=== PATIENT | female | born 1965 | race Caucasian/White ===

== ENCOUNTER 2019-08-06 12:03 | Inpatient (IN) | payer OTHER ==
[~2019-08-06] VITALS: Ht 165.1 cm; Wt 123.2 kg
--- NOTE | ~2019-08-06 | EKG ---
[place], [place] ELECTROCARDIOGRAM REPORT NAME: BRIGHT AMADO UNIT #: [id number] ROOM: [facility] DOCTOR: ANDIE DRAFT REPORT BIRTHDATE: [birth year] [facility] Test Date: 2019-08-06 Test Time: 20:03:00 Pat Name: BRIGHT AMADO Department: Room: [facility] 1 Gender: F Referral Nurse: Sejal Jean : 1965 Requested By: GERARDO PELAYO Order Number: [id number] Reading MD: Ashtyn Campuzano MD Measurements Intervals [place] Rate: 105 P: 55 PA: 172 QRS: 10 QRSD: 95 T: 40 QT: 342 QTc: 453 Interpretive Statements Sinus tachycardia Low voltage, precordial leads Borderline ST elevation, anterolateral leads Baseline wander in lead(s) I,II,III,aVR,aVL,V1,V2,V3,V4,V5,V6 Compared to ECG 08/06/2019 14:43:14 ST (T wave) deviation now present Sinus rhythm no longer present Electronically Signed On 08-08-2019 17:22:06 PDT by Ashtyn Campuzano MD CM:EKGRPT:ELECTROCARDIOGRAM REPORT 02 21 GERARDO AGUDELO DRAFT REPORT GERARDO PELAYO DO
--- NOTE | ~2019-08-06 | EKG ---
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
--- NOTE | ~2019-08-06 | EKG ---
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
[~2019-08-06 12:03] MED LIST: ALBUTEROL0.09 MG/A2 IH; ANAPROX DS550 MG PO; BP PILL; CORDROL20 MG PO; COUMADIN10 M1 PO; DELTASONE20 M1 PO; DEPRESSION PILL; LISINOPRIL10 M1 PO; MOTRIN800 MG PO; NKHM; NORCO 5-325 TA1 EACH PO; RESTORIL30 MG PO; TOBREX OPHTH S2.5 ML OPH; VIBRAMYCIN100 MG PO; VICO75300 PO; XANAX2 M1 PO
[2019-08-06 12:13] VITALS: BP 161/102
[2019-08-06 12:58] LABS: BASO # 0.1 10*3/uL (0.0-0.1); BASO % 0.5 % (0.0-1.0); EOS # 0.2 10*3/uL (0.0-0.4); EOS % 1.7 % (1.0-4.0); HEMATOCRIT 42.8 % (37.0-47.0); HEMOGLOBIN 13.4 g/dl (12.0-16.0); LYMPH # 1.5 10*3/uL (1.3-4.4); LYMPH % 12.8 % (27.0-41.0); MEAN CELL VOLUME 96.4 fl (81.0-99.0); MEAN CORPUSCULAR HGB 30.2 pg (27.0-31.0); MEAN CORPUSCULAR HGB CONC 31.3 g/dl (33.0-37.0); MONO # 0.9 10*3/uL (0.1-1.0); MONO % 7.6 % (3.0-9.0); NEUT # 8.8 10*3/uL (2.3-7.9); PLATELET COUNT AUTOMATED 300 10*3/uL (130-400); RED BLOOD COUNT 4.44 10*6/uL (4.10-5.10); RED CELL DISTRI WIDTH 13.4 % (0-14.5); WHITE BLOOD COUNT 11.4 10*3/uL (4.8-10.8)
[2019-08-06 13:10] LABS: ALBUMIN 3.1 gm/dl (3.1-4.5); ALKALINE PHOSPHATASE 92 U/L (45-117); BUN 14 mg/dl (7-24); CHLORIDE 106 mmol/L (98-107); CREATININE 0.73 mg/dL (0.55-1.02); POTASSIUM 3.5 mmol/L (3.5-5.1); SGOT/AST 14 IU/L (3-35); SGPT/ALT 31 U/L (12-78); SODIUM 141 mmol/L (136-145); TOTAL PROTEIN 7.5 gm/dL (6.4-8.2)
[2019-08-06 14:23] VITALS: BP 152/80
--- NOTE | 2019-08-06 14:45 | NUR ---
A 53, admitted to , under the services of SHENG Spears DO with a diagnosis of CELLULITIS FAILURE OF OUTPATIENT TREATMENT. Chief complaint is CELLULITIS FAILURE OF OUTPATIENT TREATMENT. Patient arrived via bed from ER. Monitor applied. Initial assessment completed. Vital signs taken and recorded. SHENG SPEARS DO notified of admission to the unit. Orders received. See assessment for past medical history, medications and allergies. Patient and/or family oriented to unit. [facility]. Clothing/patient valuable form completed. ROBERTH العلي
[2019-08-06] MEDS ORDERED: LISINOPRIL20 MG PO (14:50)
[2019-08-06] MEDS ORDERED: KEFLEX 500 MG E2 CAP PO (14:51)
--- NOTE | 2019-08-06 15:30 | NUR ---
NOTIFIED OF CONSULT AND AT PATIENTS BEDSIDE
[2019-08-06 16:00] VITALS: BP 150/75
--- NOTE | 2019-08-06 18:04 | NUR ---
FLU VACCINATION ADMINISTERED LEFT DELTOID
--- NOTE | 2019-08-06 19:50 | NUR ---
24 HOUR CHART CHECK COMPLETED
[2019-08-06 20:00] VITALS: BP 168/75
[2019-08-07] VITALS (9 sets, daily range): BP systolic 115–156; BP diastolic 50–86
--- NOTE | 2019-08-07 00:30 | NUR ---
PATIENT RESTING IN BED IN A POSITION OF COMFORT AT THIS TIME, RESPIRATIONS EASY AND NONLABORED, EYES CLOSED. CALL LIGHT WITHIN REACH WILL CONTINUE TO MONITOR.
[2019-08-07 06:18] LABS: BASO % 0.1 % (0.0-1.0); HEMATOCRIT 37.5 % (37.0-47.0); HEMOGLOBIN 11.8 g/dl (12.0-16.0); LYMPH # 0.5 10*3/uL (1.3-4.4); LYMPH % 4.6 % (27.0-41.0); MEAN CELL VOLUME 96.9 fl (81.0-99.0); MEAN CORPUSCULAR HGB 30.5 pg (27.0-31.0); MEAN CORPUSCULAR HGB CONC 31.5 g/dl (33.0-37.0); MEAN PLATELET VOLUME 9.8 fl (9.6-12.3); MONO # 0.7 10*3/uL (0.1-1.0); MONO % 6.1 % (3.0-9.0); NEUT # 9.7 10*3/uL (2.3-7.9); NEUT % 88.6 % (47.0-73.0); PLATELET COUNT AUTOMATED 271 10*3/uL (130-400); RED BLOOD COUNT 3.87 10*6/uL (4.10-5.10); RED CELL DISTRI WIDTH 13.5 % (0-14.5); WHITE BLOOD COUNT 10.9 10*3/uL (4.8-10.8)
[2019-08-07 06:45] LABS: ALBUMIN 2.5 gm/dl (3.1-4.5); ALKALINE PHOSPHATASE 82 U/L (45-117); BUN 9 mg/dl (7-24); CHLORIDE 110 mmol/L (98-107); CHOLESTEROL 148 mg/dL (<200); CREATININE 0.55 mg/dL (0.55-1.02); FREE T4 0.99 ng/dl (0.76-1.46); HDL CHOLESTEROL 58 mg/dl (40-60); LDL CHOLESTEROL 83 mg/dL (9-159); PHOSPHOROUS 2.5 mg/dL (2.5-4.9); POTASSIUM 3.8 mmol/L (3.5-5.1); SGOT/AST 14 IU/L (3-35); SGPT/ALT 27 U/L (12-78); SODIUM 142 mmol/L (136-145); TOTAL PROTEIN 6.5 gm/dL (6.4-8.2); TRIGLYCERIDES 37 mg/dl (<150); VLDL CHOLESTEROL 7 mg/dL (6-40)
[2019-08-07 06:50] LABS: THYROID STIM HORMONE (HS) 0.428 uIU/ml (0.358-4.75)
[2019-08-07 06:51] LABS: ACT PARTIAL THROMBO TIME 26.1 SECONDS (20.0-32.1); INTERNATIONAL NORM RATIO 0.9 (2.0-3.5)
--- NOTE | 2019-08-07 06:59 | NUR ---
BRIGHT AMADO [id number] Please refer to the physician's history and physical for past medical history, comorbid conditions, and allergies. Diagnosis: CELLULITIS FAILURE OF OUTPATIENT TREATMENT Matthew Score: 21,LOW OR NO RISK WOUND DESCRIPTIONS: Wound Number: 1 Location of the wound: left lower quadrant below breast Type of wound: abscess Thickness: Full Size: 11.0cm x 15.0cm x <0.1cm Tunneling: none Undermining: none Sinus Tract: none Presence of Exudate: none Amount: None Color: Red, yellow, brown Odor: None Periwound Skin Appearance: Erythema, firmness Wound edges: approximated Pain (associated with wound): tender to touch but patient states it is much better than yesterday How does patient state this happened? patient stated this started one week ago and she is unsure how it happened Surface the patient is resting on: Isoflex SKIN PREVENTION RECOMMENDATION: 1. Pressure redistribution support surface as appropriate 2. Elevate heels 3. Remove boots/TEDS every shift and reapply 4. Head of bed 30 degrees as tolerated 5. Assess nutrition and hydration 6. Manage moisture 7. Avoid the use of containment devices while in bed 8. Use absorptive products on surfaces limit layers of linens on bed 9. Turn and reposition every 1-2 hours in bed and every 1 hour in chair as tolerated 10. Weight shifts every 15 minutes while up in chair 11. Offloading with pillows or device to keep heels elevated off bed 12. Monitor skin at least every shift 13. Inspect under medical devices twice a day WOUND TREATMENT RECOMMENDATIONS: Dr. Jensen is already on consult for this patient and possible I&D after ultrasound today await wound care orders post op .
--- NOTE | 2019-08-07 07:03 | NUR ---
Patient stated that she will follow up in the wound care center if any procedures are done while she is here if not she will take care of the area at home when she is discharged.
--- NOTE | 2019-08-07 08:00 | NUR ---
Patient resting quietly with no c/o discomfort. Respirations easy and regular. Vital signs stable. No overt distress. HARISH ZUÑIGA
[2019-08-07 09:06] LABS: VITAMIN D, 25-HYDROXY 16.3 ng/mL (30-100)
--- NOTE | 2019-08-07 10:30 | NUR ---
Heat Treat Supervisor in to talk to patient. Patient states lives at home alone with her son living next door. There are 2 steps in the home. Physician: no family physician Pharmacy: [facility] Home health services: none Patient's level of ADLs: INDEPENDENT Patient has working utilities: yes DME: none Follow-up physician's appointment after d/c: will be made by the hospitalist nurse director upon discharge Does patient want to access PORTAL?: no Discharge plan discussed with patient. She lives at home alone with her son living next door. She is independent in her ADLs and ambulation. Discussed home health care services and she denies any home needs at this time. When medically stable she will be discharged to home. She will drive herself home as she drove herself here and her car is in the parking lot. RAH MENDEZ
--- NOTE | 2019-08-07 15:16 | NUR ---
MEDICATED WITH IV MORPHINE ORDERED PER PT REQUEST FOR C/O PAIN TO SURGICAL SITE.
--- NOTE | 2019-08-07 15:29 | NUR ---
Nutritional Support Services Note: Dx of abscess/cellulitis left breast. Appetite is good for meals, she is eating 100%. Regular diet as ordered. Ht.5'5 Wt.272#. Discussed with pt need for healthy eating. Adequate protein to promote healing. No other nutrition intervention at this time. Will follow as needed. Danielle Redd Rdn Ld
--- NOTE | 2019-08-07 16:40 | NUR ---
MEDICATED WITH PO NORCO ORDERED PER PT REQUEST FOR C/O PAIN TO SURGICAL SITE 07/19. DRESSING D/I. PREVIOUS MEDICATION NOT EFFECTIVE.
--- NOTE | 2019-08-07 19:07 | NUR ---
MEDICATION EFFECTIVE FOR PAIN.
--- NOTE | 2019-08-07 20:47 | NUR ---
MORPHINE GIVEN PER PRN ORDER FOR C/O PAIN TO SURGICAL INCISION UNDER LT BREAST. RENATA INTACT. CALL LIGHT IN REACH. WILL MONITOR.
--- NOTE | 2019-08-07 22:17 | NUR ---
MORPHINE EFFECTIVE FOR PAIN PER PT.
[2019-08-08] VITALS: BP 102/57
--- NOTE | 2019-08-08 04:12 | NUR ---
IV MORPHINE GIVEN PER PRN ORDERS FOR C/O 05/19 PAIN TO SURGICAL INCISION UNDER LT BREAST. CALL LIGHT IN REACH.
[2019-08-08 06:53] LABS: BUN 15 mg/dl (7-24); CHLORIDE 112 mmol/L (98-107); CREATININE 0.59 mg/dL (0.55-1.02); POTASSIUM 4.1 mmol/L (3.5-5.1); SODIUM 144 mmol/L (136-145)
[2019-08-08 07:57] LABS: BASO # 0.1 10*3/uL (0.0-0.1); BASO % 0.7 % (0.0-1.0); EOS # 0.2 10*3/uL (0.0-0.4); EOS % 2.6 % (1.0-4.0); HEMATOCRIT 37.3 % (37.0-47.0); HEMOGLOBIN 11.4 g/dl (12.0-16.0); LYMPH # 1.4 10*3/uL (1.3-4.4); LYMPH % 15.6 % (27.0-41.0); MEAN CELL VOLUME 98.9 fl (81.0-99.0); MEAN CORPUSCULAR HGB 30.2 pg (27.0-31.0); MEAN CORPUSCULAR HGB CONC 30.6 g/dl (33.0-37.0); MONO # 0.8 10*3/uL (0.1-1.0); MONO % 9.2 % (3.0-9.0); NEUT # 6.3 10*3/uL (2.3-7.9); NEUT % 71.4 % (47.0-73.0); PLATELET COUNT AUTOMATED 278 10*3/uL (130-400); RED BLOOD COUNT 3.77 10*6/uL (4.10-5.10); WHITE BLOOD COUNT 8.8 10*3/uL (4.8-10.8)
[2019-08-08 08:00] VITALS: BP 138/82
--- NOTE | 2019-08-08 08:43 | NUR ---
MEDICATED WITH PO NORCO ORDERED PER PT REQUEST FOR C/O PAIN RATED 7/10 UNDER L BREAST TO SURGICAL SITE. DRESSING D/I. ICE IN PLACE.
--- NOTE | 2019-08-08 09:40 | NUR ---
Follow up with Dr. Jensen in wound care clinic on 08/13/19 at 3:45pm, call [phone] with any concerns
--- NOTE | 2019-08-08 10:00 | NUR ---
MEDICATION SOMEWHAT EFFECTIVE FOR PAIN.
[2019-08-08 12:00] VITALS: BP 125/75
--- NOTE | 2019-08-08 15:47 | NUR ---
MEDICATED WITH PO NORCO AND IV MORPHINE ORDERED PER PT REQUEST FOR C/O PAIN TO L FLANK POST-OP SITE RATED 10/10 AFTER DRESSING CHANGE.
[2019-08-08 16:00] VITALS: BP 141/87
--- NOTE | 2019-08-08 18:53 | NUR ---
MEDICATION EFFECTIVE FOR PAIN.
[2019-08-08 20:00] VITALS: BP 123/67
--- NOTE | 2019-08-08 20:30 | NUR ---
RESTING IN BED. VOICES NO C/O AT THIS TIME. CALL LIGHT WITHIN REACH.
[2019-08-09] VITALS: BP 108/57
--- NOTE | 2019-08-09 03:30 | NUR ---
AROUSES EASILY WHEN THIS RN WENT INTO ROOM TO HANG IV ANTIBIOTIC. PT. REFUSING ANY PAIN MEDICATION AT THIS TIME. IV ANTIBX INFUSING; CALL LIGHT WITHIN REACH.
--- NOTE | 2019-08-09 06:00 | NUR ---
RESTING IN BED WITH EYES CLOSED. CALL LIGHT WITHIN REACH.
[2019-08-09 06:23] LABS: BASO # 0.1 10*3/uL (0.0-0.1); BASO % 0.6 % (0.0-1.0); EOS # 0.3 10*3/uL (0.0-0.4); EOS % 3.8 % (1.0-4.0); HEMATOCRIT 36.2 % (37.0-47.0); HEMOGLOBIN 11.1 g/dl (12.0-16.0); LYMPH # 1.3 10*3/uL (1.3-4.4); LYMPH % 15.7 % (27.0-41.0); MEAN CELL VOLUME 97.3 fl (81.0-99.0); MEAN CORPUSCULAR HGB 29.8 pg (27.0-31.0); MEAN CORPUSCULAR HGB CONC 30.7 g/dl (33.0-37.0); MEAN PLATELET VOLUME 9.7 fl (9.6-12.3); MONO # 0.7 10*3/uL (0.1-1.0); MONO % 8.3 % (3.0-9.0); NEUT # 5.9 10*3/uL (2.3-7.9); NEUT % 71.4 % (47.0-73.0); PLATELET COUNT AUTOMATED 276 10*3/uL (130-400); RED BLOOD COUNT 3.72 10*6/uL (4.10-5.10); WHITE BLOOD COUNT 8.2 10*3/uL (4.8-10.8)
[2019-08-09 06:29] LABS: BUN 12 mg/dl (7-24); CHLORIDE 107 mmol/L (98-107); CREATININE 0.59 mg/dL (0.55-1.02); POTASSIUM 4.1 mmol/L (3.5-5.1); SODIUM 141 mmol/L (136-145)
[2019-08-09 08:00] VITALS: BP 147/81
--- NOTE | 2019-08-09 08:30 | NUR ---
Extension Course Counselor in to see patient. No new needs or request at this time. She denies any home needs. When medically stable she will be discharged to home.
[2019-08-09] MEDS ORDERED: PROAIR HFA8.5 GM INH (11:48)
--- NOTE | 2019-08-09 13:30 | NUR ---
Discharge instructions reviewed with patient/family. Patient receptive and verbalizes understanding. Follow-up care arranged. Written instructions given to patient/family. Patient was educated on dressing changes and to follow up appointment at wound care clinic. RENETTA RIOS
== END 2019-08-09 15:25 | disposition home or self-care (01) | DRG 580 ==
LOC: ED 12:03 → EDHOLD 13:44 → 5E 13:44
PROVIDERS: Internal Medicine; Nurse Practitioner Family; ADMIT Internal Medicine
PROC: 0WBF0ZZ Excision of Abdominal Wall, Open Approach (ICD-10-PCS; principal; 2019-08-07)
DX: L03.311 Cellulitis of abdominal wall (principal); E44.1 Mild protein-calorie malnutrition; J45.21 Mild intermittent asthma with (acute) exacerbation; Z68.42 Body mass index [BMI] 45.0-49.9, adult; L02.211 Cutaneous abscess of abdominal wall; R73.9 Hyperglycemia, unspecified; R00.0 Tachycardia, unspecified; Z96.651 Presence of right artificial knee joint; R73.03 Prediabetes; I10 Essential (primary) hypertension; E66.01 Morbid (severe) obesity due to excess calories; D72.825 Bandemia; Z88.5 Allergy status to narcotic agent; Z90.49 Acquired absence of other specified parts of digestive tract; Z98.891 History of uterine scar from previous surgery; Z82.3 Family history of stroke; Z82.49 Family history of ischemic heart disease and other diseases of the circulatory system; Z79.899 Other long term (current) drug therapy

== ENCOUNTER 2019-12-11 12:25 | Emergency (ER) | payer OTHER ==
[~2019-12-11] VITALS: Ht 165.1 cm; Wt 117.9 kg
[~2019-12-11 12:25] MED LIST changes: +KEFLEX 500 MG E2 CAP PO; +LISINOPRIL20 MG PO; +PROAIR HFA8.5 GM INH
== END 2019-12-11 16:02 | disposition home or self-care (01) ==
LOC: ED 12:25
DX: S83.92XA Sprain of unspecified site of left knee, initial encounter (principal); I10 Essential (primary) hypertension; Z88.6 Allergy status to analgesic agent; Z79.899 Other long term (current) drug therapy; W01.198A Fall on same level from slipping, tripping and stumbling with subsequent striking against other object, initial encounter; Y93.89 Activity, other specified; Y92.098 Other place in other non-institutional residence as the place of occurrence of the external cause; Y99.8 Other external cause status

== ENCOUNTER → 2021-04-10 | Outpatient (CLI) | payer OTHER ==
[~2021-04-10] MED LIST changes: +ZOFRAN4 MG PO
== END | disposition home or self-care (01) ==
LOC: RAD 15:47
PROVIDERS: ATTEND Family Medicine
DX: M51.36 Other intervertebral disc degeneration, lumbar region (principal); M48.061 Spinal stenosis, lumbar region without neurogenic claudication; M25.78 Osteophyte, vertebrae

== ENCOUNTER → 2023-03-16 | Outpatient (CLI) | payer BC ==
[2023-03-16 08:08] LABS: BASO # 0.1 10*3/uL (0.0-0.1); BASO % 0.5 % (0.0-1.0); EOS # 0.3 10*3/uL (0.0-0.4); EOS % 3.3 % (1.0-4.0); HEMATOCRIT 43.6 % (37.0-47.0); LYMPH # 1.8 10*3/uL (1.3-4.4); LYMPH % 18.6 % (27.0-41.0); MEAN CELL VOLUME 95.8 fl (81.0-99.0); MEAN CORPUSCULAR HGB 29.9 pg (27.0-31.0); MEAN CORPUSCULAR HGB CONC 31.2 g/dl (33.0-37.0); MEAN PLATELET VOLUME 9.2 fl (9.6-12.3); MONO # 0.7 10*3/uL (0.1-1.0); MONO % 7.4 % (3.0-9.0); NEUT # 6.8 10*3/uL (2.3-7.9); NEUT % 69.9 % (47.0-73.0); PLATELET COUNT AUTOMATED 316 10*3/uL (130-400); RED BLOOD COUNT 4.55 10*6/uL (4.10-5.10); RED CELL DISTRI WIDTH 14.1 % (0-14.5); WHITE BLOOD COUNT 9.7 10*3/uL (4.8-10.8)
[2023-03-16 08:51] LABS: ALKALINE PHOSPHATASE 87 U/L (46-116); BUN 14 mg/dl (9-23); CHLORIDE 104 mmol/L (98-107); CHOLESTEROL 170 mg/dL (<200); LDL CHOLESTEROL 98 mg/dL (9-159); POTASSIUM 4.1 mmol/L (3.4-5.1); SGPT/ALT 11 U/L (10-49); TOTAL PROTEIN 7.4 gm/dL (6.0-8.0); TRIGLYCERIDES 100 mg/dl (<150)
== END | disposition home or self-care (01) ==
LOC: LAB 07:09
PROVIDERS: Physical Therapist; ATTEND Family Medicine
DX: I10 Essential (primary) hypertension (principal); E78.1 Pure hyperglyceridemia; R73.9 Hyperglycemia, unspecified

== ENCOUNTER → 2023-06-28 | Outpatient (CLI) | payer BC ==
[2023-06-28 17:38] LABS: BASO # 0.1 10*3/uL (0.0-0.1); BASO % 0.7 % (0.0-1.0); EOS # 0.3 10*3/uL (0.0-0.4); EOS % 3.4 % (1.0-4.0); HEMATOCRIT 43.9 % (37.0-47.0); LYMPH # 1.7 10*3/uL (1.3-4.4); LYMPH % 18.9 % (27.0-41.0); MEAN CELL VOLUME 93.2 fl (81.0-99.0); MEAN CORPUSCULAR HGB 30.6 pg (27.0-31.0); MEAN CORPUSCULAR HGB CONC 32.8 g/dl (33.0-37.0); MEAN PLATELET VOLUME 8.9 fl (9.6-12.3); MONO # 0.8 10*3/uL (0.1-1.0); MONO % 8.8 % (3.0-9.0); NEUT # 6.1 10*3/uL (2.3-7.9); PLATELET COUNT AUTOMATED 322 10*3/uL (130-400); RED BLOOD COUNT 4.71 10*6/uL (4.10-5.10); RED CELL DISTRI WIDTH 13.8 % (0-14.5); WHITE BLOOD COUNT 8.9 10*3/uL (4.8-10.8)
== END | disposition home or self-care (01) ==
LOC: LAB 17:17
PROVIDERS: ATTEND Internal Medicine Critical Care Medicine
DX: Z79.899 Other long term (current) drug therapy (principal)

== ENCOUNTER → 2023-12-21 | Outpatient (CLI) | payer BC | END | disposition home or self-care (01) | LOC: RAD 09:30 | PROVIDERS: ATTEND Family Medicine | DX: M77.32 Calcaneal spur, left foot (principal) ==